=== PATIENT | female | born 1960 | race Caucasian/White ===

== ENCOUNTER 2019-11-17 11:17 | Emergency (ER) | payer OTHER ==
[~2019-11-17] VITALS: Ht 157.5 cm; Wt 63.6 kg
[2019-11-17 12:16] LABS: BASO # 0.1 10^3/uL (0.0-0.2); BASO % 0.7 % (0.0-1.0); EOS # 0.2 10^3/uL (0.0-0.5); EOS % 1.7 % (0.0-3.0); HEMATOCRIT 47.3 % (36.0-47.0); HEMOGLOBIN 15.6 g/dl (12.0-15.5); LYMPH # 3.6 10^3/uL (1.5-5.0); LYMPH % 41.1 % (24.0-44.0); MEAN CORPUSCULAR HEMOGLOBIN 28.9 pg (27.0-33.0); MEAN CORPUSCULAR VOLUME 87.8 fl (80.0-96.0); MONO # 0.8 10^3/uL (0.0-0.8); MONO % 8.6 % (0.0-5.0); NEUTROPHILS # 4.1 10^3/uL (1.5-8.5); NEUTROPHILS % 47.6 % (36.0-66.0); PLATELET COUNT, AUTOMATED 265 10^3/uL (150-450); RED BLOOD COUNT 5.39 10^6/uL (4.00-5.40); WHITE BLOOD COUNT 8.7 10^3/uL (4.0-10.0)
[2019-11-17] MEDS ORDERED: ISOVUE-370 76% 100ML VIAL As Ordered ONE (12:22)
[2019-11-17] MEDS ORDERED: ASPI-527 PO (12:39)
[2019-11-17] MEDS ORDERED: INCR1INH INH (12:39)
[2019-11-17] MEDS ORDERED: HYDR200T3 PO (12:39)
[2019-11-17] MEDS ORDERED: METF10004 PO (12:39)
[2019-11-17] MEDS ORDERED: PREG100CA PO (12:39)
[2019-11-17] MEDS ORDERED: METH2.5T48 PO (12:39)
[2019-11-17] MEDS ORDERED: PRED10PA PO (12:39)
[2019-11-17 12:42] LABS: ALBUMIN 3.4 GM/DL (3.2-5.2); ALT/SGPT 23 U/L (12-78); BILIRUBIN,DIRECT < 0.1 MG/DL (0.0-0.2); BILIRUBIN,TOTAL 0.3 MG/DL (0.2-1.0); LIPASE 102 U/L (73-393); TOTAL PROTEIN 7.2 GM/DL (6.4-8.2)
[2019-11-17 12:53] LABS: INR 0.98; PARTIAL THROMBOPLASTIN TIME 24.5 SECONDS (25.0-38.4); PROTHROMBIN TIME 12.7 SECONDS (11.8-14.0)
[2019-11-17] MEDS: COMBIVENT RESPIMAT 100-20MCG INHALER 4GM INH SCH ×3 (13:06→13:55)
[2019-11-17] MEDS ORDERED: diphenhydrAMINE 25MG CAP PO ONE (13:15)
--- NOTE | 2019-11-17 14:29 | REP ---
CT PULMONARY ANGIOGRAM: With IV contrast. HISTORY: Pleuritic chest pain. History of DVT. Rule out pulmonary embolus. COMPARISON STUDIES: No comparison study. CONTRAST DOSE: 100 mL of Isovue [address] TECHNIQUE: Helical scanning is acquired and overlapping 1.5 mm and contiguous 3 mm axial images are reformatted. In addition, maximum intensity projection and multiplanar re-formation images are generated in sagittal and coronal imaging projections. CT PULMONARY ANGIOGRAPHIC FINDINGS: There is good opacification in the pulmonary arterial tree. No filling defect or vessel cutoff is seen to suggest pulmonary embolism. Maximal intensity projection images show no evidence of pulmonary embolus. Thoracic aorta enhances homogeneously. There is no evidence of aneurysm or dissection. No hilar or mediastinal mass or adenopathy is observed. No pleural or pericardial effusion is seen. Lung castro show mild emphysematous changes in the upper lobes bilaterally. No infiltrate, mass, or significant pulmonary nodule is appreciated. No bony destructive lesion is seen. Gallbladder is surgically absent. Normal adrenal glands are seen. The visualized upper abdominal structures are unremarkable. IMPRESSION: No CT evidence of pulmonary embolus. No active cardiopulmonary disease. Electronically Signed by Adan Arellano MD 11/17/2019 02:37 P
--- NOTE | 2019-11-17 14:32 | REP ---
CT ABDOMEN PELVIS WITH IV BUT WITHOUT ORAL CONTRAST: HISTORY: Diffuse abdomen pain. History of pancreatitis. No comparison imaging. CT CONTRAST DOSE: 100 mL of intravenous Isovue 370. 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 There are clips in right upper quadrant and bilaterally in the pelvis consistent with previous surgery. There is an arterial stent in a long segment of the left superficial femoral artery. The liver and the spleen are normal in size homogeneous in texture. There is diffuse low density in the liver consistent with fatty infiltration. No focal liver lesion is seen. Normal adrenal glands are seen. No abnormality is noted in the pancreas. The gallbladder is surgically absent. No retroperitoneal mass or adenopathy is seen. There is mild ectasia of the infrarenal abdominal aorta, 2.0 cm. No aneurysm. The celiac axis, inferior mesenteric, and superior mesenteric arteries are widely patent. Singular nonstenotic renal arteries origins are seen. Kidneys enhance symmetrically. There is mucosal hyper-enhancement and mild mucosal and mural thickening affecting most of the ileum compared to the jejunum. No obstructive lesion is seen. The hyper-enhancement and mild mucosal thickening suggests inflammation. There is a broad differential for this finding including enteritis, vasculitis, and inflammatory bowel disease. No obstructive lesion is seen. Large bowel loops are unremarkable. Postsurgical changes are seen in the pelvis. The uterus is surgically absent. Urinary bladder is unremarkable. IMPRESSION: The dominant abnormality is small bowel hyper-enhancement and mucosal thickening involving the distal small bowel (the ileum). This is nonspecific but consistent with enteritis and inflammatory bowel disease and vasculitis. Postoperative changes. Fatty infiltration of the liver. Electronically Signed by Adan Arellano MD 11/17/2019 02:38 P
[2019-11-17] MEDS ORDERED: IPRA0.00 NEB (15:00)
[2019-11-17] MEDS ORDERED: MEDR4PAK PO (15:00)
[2019-11-17 15:04] LABS: CK-MB VALUE MASS < 1.0 NG/ML (<3.6); CPK CREATINE PHOSPHOKINASE 50 U/L (26-192); TROPONIN I < 0.02 NG/ML (< 0.10)
[2019-11-17 15:31] VITALS: BP 130/76
--- NOTE | 2019-11-17 21:22 | ECGEPIP ---
[facility] - ED Test Date: 2019-11-17 Pat Name: DAISY PARKS Department: Room: - Gender: Female Elevator Repair Mechanic: RHIANNONNILSA : 1960 Requested By: MARY Lee PA-C Order Number: [id number] Reading MD: Rolando Lerma Measurements Intervals [place] Rate: 81 P: 55 AL: 139 QRS: 14 QRSD: 96 T: 60 QT: 382 QTc: 446 Interpretive Statements SINUS RHYTHM LOW QRS VOLTAGE IN PRECORDIAL LEADS NO PRIORS FOR COMPARISON Electronically Signed on 11-17-2019 21:22:30 EDT by Rolando Lerma
== END 2019-11-17 15:33 | disposition home or self-care (01) ==
LOC: M ED 11:17
DX: J44.1 Chronic obstructive pulmonary disease with (acute) exacerbation (principal); I11.9 Hypertensive heart disease without heart failure; E11.9 Type 2 diabetes mellitus without complications; Z79.52 Long term (current) use of systemic steroids; Z79.82 Long term (current) use of aspirin; Z79.84 Long term (current) use of oral hypoglycemic drugs; Z79.899 Other long term (current) drug therapy; Z88.0 Allergy status to penicillin
CPT/HCPCS: 71275; 74177; 80047; 80076; 82550; 82553; 83690; 85025; 85610; 85730; 93005; 94640; 94760; 99284; Q9967

== ENCOUNTER 2020-05-23 12:45 | Emergency (ER) | payer OTHER, SELFPAY ==
[~2020-05-23] VITALS: Ht 157.5 cm; Wt 61.6 kg
[~2020-05-23 12:45] MED LIST: ASPI-527 PO; HYDR200T3 PO; INCR1INH INH; IPRA0.00 NEB; MEDR4PAK PO; METF10004 PO; METH2.5T48 PO; PRED10PA PO; PREG100CA PO
[2020-05-23] MEDS ORDERED: ALBU83IN NEB (13:28)
[2020-05-23] MEDS ORDERED: METH2.5T48 PO (13:28)
[2020-05-23] MEDS ORDERED: METO1TAB7 PO (13:28)
[2020-05-23] MEDS ORDERED: PROC1CRE5 PR (13:28)
[2020-05-23] MEDS ORDERED: ENAL1TAB46 PO (13:28)
[2020-05-23] MEDS ORDERED: MM S100C PO (13:28)
[2020-05-23] MEDS ORDERED: FOLI400T PO (13:28)
[2020-05-23] MEDS ORDERED: CILO50TA PO (13:28)
[2020-05-23] MEDS ORDERED: INSURSD SC (13:28)
[2020-05-23] MEDS ORDERED: INCR1INH INH (13:28)
[2020-05-23] MEDS ORDERED: LEVO125T4 PO (13:28)
[2020-05-23] MEDS ORDERED: NESI25TA PO (13:28)
[2020-05-23] MEDS ORDERED: VALA1TAB5 PO (13:28)
[2020-05-23] MEDS ORDERED: PREG100C PO (13:28)
[2020-05-23] MEDS ORDERED: ATOR40TA75 PO (13:28)
[2020-05-23] MEDS ORDERED: LORA-622 PO (13:28)
--- NOTE | 2020-05-23 13:54 | REP ---
INDICATION: trauma, bruising COMPARISON: None. TECHNIQUE: AP, lateral, bilateral oblique views right foot. FINDINGS: Osteopenia and age-related changes are appreciated and limit evaluation for subtle injury. No definite acute fracture or dislocation identified. No subcutaneous emphysema or foreign body. IMPRESSION: Limited by osteopenia and degenerative changes. No obvious acute fracture or dislocation. <Electronically signed by Dylan Montez > 05/23/20 [id number]
--- NOTE | 2020-05-23 13:55 | REP ---
INDICATION: trauma, bruising COMPARISON: None. TECHNIQUE: AP and frog-lateral views of the left hip FINDINGS: Evidence for prior vascular surgery. No acute fracture or dislocation. No subcutaneous emphysema or abnormal foreign body IMPRESSION: No acute fracture or dislocation. <Electronically signed by Dylan Montez > 05/23/20 [id number]
--- NOTE | 2020-05-23 13:56 | REP ---
INDICATION: trauma, bruising COMPARISON: None. TECHNIQUE: AP, lateral, bilateral oblique and sunrise views. FINDINGS: Degenerative changes include increased sclerosis along the medial tibial plateau as well as sclerosis and fraying along the anterior patellar margin. No acute fracture or dislocation. No obvious effusion. IMPRESSION: Mild degenerative changes. No acute fracture or dislocation. <Electronically signed by Dylan Montez > 05/23/20 [id number]
[2020-05-23] MEDS ORDERED: COMBIVENT RESPIMAT 100-20MCG INHALER 4GM INH ONE (14:15)
[2020-05-23] MEDS ORDERED: PRED20TA PO (14:20)
[2020-05-23 14:52] VITALS: BP 117/64
== END 2020-05-23 14:59 | disposition home or self-care (01) ==
LOC: M ED 12:45
DX: M25.571 Pain in right ankle and joints of right foot (principal); M25.562 Pain in left knee; M25.552 Pain in left hip; J45.901 Unspecified asthma with (acute) exacerbation; I10 Essential (primary) hypertension; J44.9 Chronic obstructive pulmonary disease, unspecified; E78.5 Hyperlipidemia, unspecified; G62.9 Polyneuropathy, unspecified; Z79.899 Other long term (current) drug therapy; Z79.82 Long term (current) use of aspirin; Z79.4 Long term (current) use of insulin; Z88.0 Allergy status to penicillin; F17.210 Nicotine dependence, cigarettes, uncomplicated